=== PATIENT | female | born 1990 | race African-American/Black ===

== ENCOUNTER 2018-09-17 18:48 | Emergency (ER) | payer OTHER ==
[~2018-09-17] VITALS: Ht 170.2 cm; Wt 80.0 kg
[2018-09-17] MEDS ORDERED: MORPHINE SULFATE 4 MG/ML CPJ (NOT FOR IM USE) IV ONE (20:45)
[2018-09-17] MEDS ORDERED: ONDANSETRON HCL 4MG/2ML INJ IV ONE (20:45)
[2018-09-17] MEDS ORDERED: SODIUM CHLORIDE 0.9% 1,000 ML IV ONE (20:45)
[2018-09-17] MEDS ORDERED: MORPHINE SULFATE 10 MG/ML CPJ IV NR (21:03)
[2018-09-17] MEDS ORDERED: MORPHINE SULFATE 10 MG/ML CPJ IV ONE (21:15)
[2018-09-17 23:11] LABS: HEMATOCRIT. 37.8 % (36.0-48.0); HEMOGLOBIN. 12.6 g/dL (12.0-16.0); MEAN CORPUSCULAR HEMOGLOBIN 29.5 pg (28.0-32.0); MEAN CORPUSCULAR VOLUME 88.7 fL (81.0-99.0); MEAN PLATELET VOLUME 8.8 fl (7.4-10.4); PLATELET 225 x1000/uL (130-400); RED BLOOD CELL COUNT 4.26 mill/uL (4.2-5.4); RED CELL DISTRIBUTION WIDTH 12.8 % (11.6-14.6)
[2018-09-17 23:17] LABS: INR 1.1; PROTHROMBIN TIME 11.3 sec (9.1-11.1)
[2018-09-17 23:20] LABS: CHLORIDE 105 mEq/L (98-107)
[2018-09-17 23:27] LABS: PLATELET ESTIMATE NORMAL
[2018-09-17 23:44] LABS: B-HCG QUANTITATIVE 22361 mIU/mL (<3)
[2018-09-18 00:58] LABS: CLARITY URINE CLEAR (CLEAR); COLOR URINE YELLOW (YELLOW); KETONES URINE 2+ (NEGATIVE); LEUKOCYTE ESTERASE URINE NEGATIVE (NEGATIVE); NITRITE URINE NEGATIVE (NEGATIVE); OCCULT BLOOD URINE 2+ (NEGATIVE); PROTEIN URINE NEGATIVE (NEGATIVE); SPECIFIC GRAVITY URINE 1.016 (1.005-1.030)
[2018-09-18 01:46] VITALS: BP 124/62
== END 2018-09-18 01:47 | disposition home or self-care (01) ==
LOC: ER 18:48
DX: O03.9 Complete or unspecified spontaneous abortion without complication (principal); J45.909 Unspecified asthma, uncomplicated
CPT/HCPCS: 36415; 76830; 76856; 80053; 81003; 84702; 85025; 85610; 86850; 86900; 86901; 88305; 96361; 96374; 96375; 99284; J2270; J2405; J7030